=== PATIENT | female | born 2000 | race Two or more races ===

== ENCOUNTER 2019-03-02 18:48 | Emergency (ER) | payer OTHER ==
[2019-03-02 19:08] VITALS: BP 130/67
--- NOTE | 2019-03-02 20:01 | ER Document Report ---
ED Medical Screen (RME) - General Chief Complaint: Urinary Problem Stated Complaint: URINARY PROBLEMS Time Seen by Provider: 03/02/19 19:49 Mode of Arrival: Ambulatory Information source: Patient Notes: Patient is an otherwise healthy 18-year-old female who presents with chief complaint of urinary urgency, irregular vaginal bleeding and foul-smelling pleuritic vaginal discharge. Patient reports that she believes she had a miscarriage in November based upon a home test. She states that she has had foul-smelling discharge since then. She denies any fevers, nausea, vomiting or diarrhea. Exam: Abdomen soft, nontender with no guarding and no rebound. I have greeted and performed a rapid initial assessment of this patient. A comprehensive ED assessment and evaluation of the patient, analysis of test results and completion of the medical decision making process will be conducted by additional ED providers. Dictation of this chart was performed using voice recognition software; therefore, there may be some unintended grammatical errors. TRAVEL OUTSIDE OF THE [place] IN LAST 30 DAYS: No - Related Data Allergies/Adverse Reactions: Mydol Allergy (Uncoded 03/02/19 18:56) Physical Exam - Vital signs Vitals: Temp Pulse Resp BP Pulse Ox 98.4 F 92 H 16 130/67 H 98 03/02/19 19:05 03/02/19 19:05 03/02/19 19:05 03/02/19 19:05 03/02/19 19:05 Course - Vital Signs Vital signs: Temp Pulse Resp BP Pulse Ox 98.4 F 92 H 16 130/67 H 98 03/02/19 19:05 03/02/19 19:05 03/02/19 19:05 03/02/19 19:05 03/02/19 19:05
[2019-03-02 21:32] LABS: AMORPHOUS SEDIMENT,URINE 1+ /HPF; APPEARANCE,URINE TURBID; BILIRUBIN,URINE NEGATIVE (NEGATIVE); COLOR,URINE YELLOW; GLUCOSE, URINE NEGATIVE (NEGATIVE); KETONES,URINE NEGATIVE (NEGATIVE); LEUKOCYTE ESTERASE,URINE NEGATIVE (NEGATIVE); NITRITE,URINE NEGATIVE (NEGATIVE); PROTEIN,URINE NEGATIVE (NEGATIVE); URINE SPECIFIC GRAVITY 1.027
== END 2019-03-02 22:03 | disposition left against medical advice (07) ==
LOC: ER 18:48
DX: R39.15 Urgency of urination (principal); N93.8 Other specified abnormal uterine and vaginal bleeding; N89.8 Other specified noninflammatory disorders of vagina
CPT/HCPCS: 81001; 87086; 99281

== ENCOUNTER 2019-03-03 14:15 | Emergency (ER) | payer OTHER ==
--- NOTE | 2019-03-03 14:47 | ER Document Report ---
ED Medical Screen (RME) - General Chief Complaint: Vaginal Bleeding Stated Complaint: VAGINAL BLEEDING Time Seen by Provider: 03/03/19 14:41 TRAVEL OUTSIDE OF THE [place] IN LAST 30 DAYS: No - HPI Notes: 03/03/19 14:45 Patient is here after checking in yesterday for the same complaint, but states that there were issues and did not get seen. I agree with RME note from yesterday. "Patient is an otherwise healthy 18-year-old female who presents with chief complaint of urinary urgency, irregular vaginal bleeding and foul-smelling pleuritic vaginal discharge. Patient reports that she believes she had a mi scarriage in November based upon a home test. She states that she has had foul-smelling discharge since then. She denies any fevers, nausea, vomiting or diarrhea." Patient states that her irregular vaginal bleeding has been ongoing for the last 7 months and varies from spotting to heavier flow when she is having a menstrual cycle. I have treated and performed a rapid initial assessment of this patient. A comprehensive ED assessment and evaluation of the patient, analysis of test results and completion of medical decision making process will be conducted by additional ED providers. PHYSICAL EXAMINATION: GENERAL: Well-appearing, well-nourished and in no acute distress. A&Ox4. Answers questions appropriately. LUNGS: Breath sounds clear to auscultation bilaterally and equal. No wheezes rales or rhonchi. HEART: Regular rate and rhythm without murmurs, rubs, gallops. - Related Data Allergies/Adverse Reactions: Mydol Allergy (Uncoded 03/03/19 14:17) Past Medical History - Social History Frequency of alcohol use: None Drug Abuse: None Renal/ Medical History: Denies: Hx Peritoneal Dialysis Physical Exam - Vital signs Vitals: Temp Pulse Resp BP Pulse Ox 98.7 F 87 16 127/75 H 97 03/03/19 14:36 03/03/19 14:36 03/03/19 14:36 03/03/19 14:36 03/03/19 14:36 Course - Vital Signs Vital signs: Temp Pulse Resp BP Pulse Ox 98.7 F 87 16 127/75 H 97 03/03/19 14:36 03/03/19 14:36 03/03/19 14:36 03/03/19 14:36 03/03/19 14:36
[2019-03-03 15:17] LABS: ABSOLUTE EOSINOPHILS # (AUTO) 0.1 10^3/uL (0.0-0.6); ABSOLUTE LYMPHOCYTES (AUTO) 1.9 10^3/uL (0.5-4.7); ABSOLUTE MONOCYTES (AUTO) 0.4 10^3/uL (0.1-1.4); ABSOLUTE NEUT (AUTO) 3.8 10^3/uL (1.7-8.2); BASOPHILS % (AUTO) 0.5 % (0-2); EOSINOPHILS % (AUTO) 1.1 % (0-6); HEMOGLOBIN 13.2 g/dL (12.0-15.5); LYMPHOCYTES % (AUTO) 30.6 % (13-45); MEAN CORPUSCULAR HEMOGLOBIN 28.4 pg (27.0-33.4); MEAN CORPUSCULAR HGB CONC 33.8 g/dL (32.0-36.0); MEAN CORPUSCULAR VOLUME 84 fl (80-97); MONOCYTES % (AUTO) 6.3 % (3-13); PLATELET COUNT 277 10^3/uL (150-450); RED BLOOD COUNT 4.64 10^6/uL (3.72-5.28); RED CELL DISTRIBUTION WIDTH 13.8 % (11.5-14.0); SEGMENTED NEUTROPHILS % (AUTO) 61.5 % (42-78); TOTAL CELLS COUNTED % (AUTO) 100 %; WHITE BLOOD COUNT 6.2 10^3/uL (4.0-10.5)
[2019-03-03 15:24] LABS: APPEARANCE,URINE SLIGHTLY-CLOUDY; BILIRUBIN,URINE NEGATIVE (NEGATIVE); COLOR,URINE YELLOW; GLUCOSE, URINE NEGATIVE (NEGATIVE); KETONES,URINE NEGATIVE (NEGATIVE); LEUKOCYTE ESTERASE,URINE NEGATIVE (NEGATIVE); NITRITE,URINE NEGATIVE (NEGATIVE); PROTEIN,URINE NEGATIVE (NEGATIVE); URINE SPECIFIC GRAVITY 1.026
[2019-03-03 15:37] LABS: ALANINE AMINOTRANSFERASE 13 U/L (5-35); ALKALINE PHOSPHATASE 96 U/L (50-135); ANION GAP 6 (5-19); ASPARTATE AMINO TRANSFERASE 20 U/L (5-30); BILIRUBIN,DIRECT 0.3 mg/dL (0.0-0.4); BILIRUBIN,TOTAL 0.4 mg/dL (0.2-1.3); BLOOD UREA NITROGEN 14 mg/dL (7-20); CALCIUM 10.1 mg/dL (8.4-10.2); CARBON DIOXIDE 25 mmol/L (22-30); CHLORIDE 108 mmol/L (98-107); GLUCOSE 95 mg/dL (75-110); POTASSIUM 4.4 mmol/L (3.6-5.0); SODIUM 139.1 mmol/L (137-145); TOTAL PROTEIN 7.2 g/dL (6.3-8.2)
[2019-03-03 18:36] LABS: CHLAM PCR NOT DETECTED (NOT DETECT); GON PCR NOT DETECTED (NOT DETECT)
--- NOTE | 2019-03-03 18:45 | ER Document Report ---
Addendum entered and electronically signed by LYDIA HENDRICKS PA-C 03/03/19 19:36: Discharge - Discharge Clinical Impression: PID (acute pelvic inflammatory disease) Condition: Good Disposition: HOME, SELF-CARE Additional Instructions: Your are being treated for pelvic inflammatory disease. You are being started on 2 different antibiotics and you need to take these until you finish them. Please return if you have worsening pain, persistent vomiting, spike a fever greater than 101F, or have any other symptoms that are concerning to you. Please follow closely with you primary care physician or your SENIOR SHIPPING CLERK at your earliest ability. Prescriptions: Doxycycline Hyclate 100 mg PO BID 14 Days #28 capsule Metronidazole [Flagyl] 500 mg PO BID 14 Days #28 tablet Referrals: RADHA SOLOMON DO [Primary Care Provider] - Follow up as needed Original Note: ED General - General Chief Complaint: Vaginal Bleeding Stated Complaint: VAGINAL BLEEDING Time Seen by Provider: 03/03/19 14:41 Primary Care Provider: RADHA SOLOMON DO [Primary Care Provider] - Follow up as needed Notes: 18-year-old female who presents with chief complaint of urinary urgency, irregular vaginal bleeding and foul-smelling vaginal discharge that she describes as the smell of "dried blood ". Patient reports that she believes she had a miscarriage in November based upon a home test. She states that she has had foul-smelling discharge since then. She denies any fevers, nausea, vomiting or diarrhea. Patient states that her irregular vaginal bleeding has been ongoing for the last 7 months and varies from spotting to heavier flow when she is having a menstrual cycle. Patient was here yesterday for this complaint but left and stated that she would return today. No other complaints. TRAVEL OUTSIDE OF THE [place] IN LAST 30 DAYS: No - Related Data Allergies/Adverse Reactions: Mydol Allergy (Uncoded 03/03/19 14:17) Past Medical History - Social History Smoking Status: Never Smoker Frequency of alcohol use: None Drug Abuse: None Family History: None Patient has suicidal ideation: No Patient has homicidal ideation: No Renal/ Medical History: Denies: Hx Peritoneal Dialysis Review of Systems - Review of Systems Constitutional: See HPI EENT: No symptoms reported Cardiovascular: See HPI Respiratory: See HPI Gastrointestinal: See HPI Genitourinary: No symptoms reported Female Genitourinary: See HPI Musculoskeletal: No symptoms reported Skin: No symptoms reported Hematologic/Lymphatic: No symptoms reported Neurological/Psychological: No symptoms reported Physical Exam - Vital signs Vitals: Temp Pulse Resp BP Pulse Ox 98.7 F 87 16 127/75 H 97 03/03/19 14:36 03/03/19 14:36 03/03/19 14:36 03/03/19 14:36 03/03/19 14:36 - Notes Notes: PHYSICAL EXAMINATION: Reviewed vital signs and charting by RN GENERAL: Alert, interacts well. No acute distress. HEAD: Normocephalic, atraumatic. EYES: Pupils equal and round. Extraocular movements intact NECK: Full range of motion. Supple. Trachea midline. LUNGS: Clear to auscultation bilaterally, no wheezes, rales, or rhonchi. No respiratory distress. HEART: Regular rate and rhythm. No murmur ABDOMEN: soft, non-tender. Non-distended. Bowel sounds present. no McBurney's point tenderness, no Mcclain sign. EXTREMITIES: Moves all 4 extremities spontaneously. No edema, No cyanosis. Normal distal neurovascular exam BACK: No CVAT NEUROLOGIC: Oriented and appropriate. Normal speech. PSYCH: Normal affect, normal mood. SKIN: Warm, dry, normal turgor. No rashes or lesions noted. Course - Re-evaluation Re-evalutation: 03/03/19 18:53 Patient presents today after coming here last night. Pelvic exam done, small amount of blood seen. At the cervical loss. Foul-smell noted on exam, no copious discharge, positive cervical motion tenderness. Culture sent to lab. Transvaginal ultrasound done and radiology read pending. 03/03/19 19:26 Transvaginal ultrasound done and showed a small right ovarian cyst, does correlate clinically. Wet mount consistent with bacterial vaginosis but since patient does have cervical motion tenderness and long-standing foul-smelling discharge and pain her presentation is consistent with PID. Will treat appropriately. Patient will receive ceftriaxone 1 g IM here in the emergency department with first dosing of Flagyl and doxycycline and will get an outpatient prescription. Patient is stable for discharge. 03/03/19 19:31 - Vital Signs Vital signs: Temp Pulse Resp BP Pulse Ox 98.7 F 87 16 127/75 H 97 03/03/19 14:36 03/03/19 14:36 03/03/19 14:36 03/03/19 14:36 03/03/19 14:36 - Laboratory Result Diagrams: 03/03/19 14:53 03/03/19 14:53 Laboratory results interpreted by me: 03/03/19 03/03/19 14:53 14:53 Chloride 108 H Urine Blood SMALL H Urine Urobilinogen 2.0 H Discharge - Discharge Clinical Impression: PID (acute pelvic inflammatory disease) Condition: Good Disposition: HOME, SELF-CARE Additional Instructions: Your are being treated for pelvic inflammatory disease. You are being started on 2 different antibiotics and you need to take these until you finish them. Please return if you have worsening pain, persistent vomiting, spike a fever greater than 101F, or have any other symptoms that are concerning to you. Please follow closely with you primary care physician or your SENIOR SHIPPING CLERK at your earliest ability. Referrals: RADHA SOLOMON, DO [Primary Care Provider] - Follow up as needed
--- NOTE | 2019-03-03 18:58 | RADIOLOGY REPORT (SQ) ---
EXAM DESCRIPTION: U/S NON OB PEL TV W/DOPPLER COMPLETED DATE/TIME: 03/03/2019 6:45 pm REASON FOR STUDY: pelvic pain, dysmenorrhea COMPARISON: None. TECHNIQUE: Dynamic and static grayscale images acquired of the pelvis via transvaginal approach and recorded on PACS. Additional selected color Doppler and spectral images recorded. LIMITATIONS: None. FINDINGS: UTERUS: Contour normal. No mass. ENDOMETRIAL STRIPE: Focal areas of calcification are noted. No endometrial thickening. No masses. CERVIX: No nabothian cysts. RIGHT OVARY AND DOPPLER: There is a small right ovarian cyst measured 1.3 x 0.8 x 0.9 cm. Normal van w. LEFT OVARY AND DOPPLER: Normal size. No worrisome masses. Normal arterial vascular flow without evide nce for torsion. FREE FLUID: None noted. OTHER: No other significant finding. MEASUREMENTS: UTERUS: 8.6 x 4.1 x 5.5 cm. ENDOMETRIAL STRIPE: 2.4 mm. RIGHT OVARY: 3.7 x 2.0 x 2.3 cm. LEFT OVARY: 3.6 x 2.6 x 2.3 cm. IMPRESSION: Small right ovarian cyst. No other significant findings. TECHNICAL DOCUMENTATION: JOB ID: [id number] [employer]- All Rights Reserved Rev-04/18 Reading location - IP/workstation name: [email or web address]
[2019-03-03 19:12] LABS: BACTERIA (WET MOUNT) 4+ BACTERIA SEEN; EPITHELIALS (WET MOUNT) 3+ EPITHELIALS SEEN; RBCS (WET MOUNT) 4+ RBCS SEEN; T.VAGINALIS (WET MOUNT) NO TRICHOMONAS SEEN; WBCS (WET MOUNT) 1+ WBCS SEEN; YEAST (WET MOUNT) NO YEAST SEEN
[2019-03-03] MEDS ORDERED: DOXYCYCLINE HYCLATE 100 MG TABLET PO ONE (19:28)
[2019-03-03] MEDS ORDERED: METRONIDAZOLE 500 MG TABLET PO ONE (19:28)
[2019-03-03] MEDS ORDERED: CEFTRIAXONE INJ 1000 MG VIAL IM ONE (19:28)
[2019-03-03] MEDS ORDERED: LIDOCAINE 1% INJ-PF (10 MG/ML) 30 ML SDV ONE (19:40)
[2019-03-03 20:10] VITALS: BP 128/79
[2019-03-03 20:40] LABS: CHLAM PCR NOT DETECTED (NOT DETECT); GON PCR NOT DETECTED (NOT DETECT)
== END 2019-03-03 20:11 | disposition home or self-care (01) ==
LOC: ER 14:15
DX: N73.9 Female pelvic inflammatory disease, unspecified (principal); N93.9 Abnormal uterine and vaginal bleeding, unspecified; N89.8 Other specified noninflammatory disorders of vagina
CPT/HCPCS: 99284; 96372; 36415; 87086; 87210; 85025; 81025; 80053; 81001; 87491; 87591; 76830; 93976; J3490; J0696

== ENCOUNTER 2020-01-13 17:47 | Outpatient (CLI) | payer MEDICAID ==
[2020-01-13 18:43] LABS: AMORPHOUS SEDIMENT,URINE TRACE /HPF; APPEARANCE,URINE CLOUDY; BILIRUBIN,URINE NEGATIVE (NEGATIVE); COLOR,URINE AMBER; GLUCOSE, URINE NEGATIVE (NEGATIVE); KETONES,URINE NEGATIVE (NEGATIVE); LEUKOCYTE ESTERASE,URINE TRACE (NEGATIVE); NITRITE,URINE NEGATIVE (NEGATIVE); PROTEIN,URINE 30 mg/dL (NEGATIVE); URINE SPECIFIC GRAVITY 1.026
[2020-01-13 18:59] LABS: URINE AMPHETAMINES SCREEN NEGATIVE; URINE BARBITURATES SCREEN NEGATIVE; URINE BENZODIAZEPINES SCREEN NEGATIVE; URINE COCAINE SCREEN NEGATIVE; URINE MARIJUANA (THC) SCREEN NEGATIVE; URINE METHADONE SCREEN NEGATIVE; URINE PHENCYCLIDINE SCREEN NEGATIVE
[2020-01-13] MEDS ORDERED: INFLUENZA QUAD (6MOS+) 2019-20 VAC 0.5 ML SYR IM ONE (19:08)
--- NOTE | 2020-01-13 20:36 | RADIOLOGY REPORT (SQ) ---
EXAM DESCRIPTION: US LIMITED COMPLETED DATE/TME: 01/13/2020 00:00 CLINICAL HISTORY: 19 years, Female, threatened labor COMPARISON: None. TECHNIQUE: 20 static images 2 cine loops LIMITATIONS: None. FINDINGS: A viable single intrauterine gestation is identified in a vertex presentation. The heart beat is regular at 140 beats per minute. The placenta is in a anterior location. No evidence of previa or abruption. Cervix is closed measuring 3.4 cm Biometrics: Biparietal diameter is 5.5 cm., 22 weeks 6 days Head circumference is 20.6 cm., 22 weeks 5 days Abdominal circumference is 18.4 cm., 23 weeks 1 days Femoral length is 4.1 cm., 23 weeks 1 days Composite gestational age is 23 weeks 0 days +/- # weeks # days, WILDA of May 11, 2020. Clinical age is 23 weeks 3 days, WILDA of May 08, 2020. Estimated weight is 562 grams, +/- 83 grams. This places the fetus within the 36th percentile Amniotic fluid index is 18.1 cm. Maternal pelvis is not evaluated. IMPRESSION: Viable single intrauterine gestation in a vertex presentation, as described copyright 2010 [employer]- All Rights Reserved
== END 2020-01-13 20:55 | disposition home or self-care (01) ==
LOC: LC 17:47
PROVIDERS: ATTEND Obstetrics & Gynecology
PROC: 4A1HXCZ Monitoring of Products of Conception, Cardiac Rate, External Approach (ICD-10-PCS; principal; 2020-01-13)
DX: O47.02 False labor before 37 completed weeks of gestation, second trimester (principal); Z3A.24 24 weeks gestation of pregnancy; Z23 Encounter for immunization
CPT/HCPCS: 76815; 80307; 81001; 90686